=== PATIENT | female | born 1950 | race African-American/Black ===

== ENCOUNTER 2023-09-04 19:13 | Emergency (ER) | payer MEDICARE, SELFPAY ==
--- NOTE | ~2023-09-04 | XR_ITS ---
EXAMINATION: XR chest 1V portable DATE: 09/04/2023 23:17 INDICATION: Lightheadedness. Dizziness. Nausea and vomiting. TECHNIQUE: A single frontal view of the chest was obtained. COMPARISON: None. FINDINGS: There is mild atelectasis in left lower lung zone. No pleural effusion or pneumothorax. The heart size is normal. IMPRESSION: 1. Mild atelectasis in left lower lung zone. Reviewed, dictated and finalized at location E.
[2023-09-04 19:21] VITALS: BP 215/91; PULSE 71; RESP 20; TEMP 36.4; O2SAT 98
--- NOTE | 2023-09-04 19:23 | ECG_ITS ---
SEE SCANNED COPY FOR CONFIRMED REPORT MTDD
[2023-09-04 19:44] LABS: Glucose Point of Care 154 mg/dl (65-105)
[2023-09-04 19:54] LABS: Basophils Absolute Auto 0.1 K/mm3 (0.0-0.1); Basophils Percent Auto 0.7 % (0.2-1.2); Eosinophils Absolute Auto 0.4 K/mm3 (0-0.3); Eosinophils Percent Auto 4.3 % (0-4.4); Hematocrit 43.2 % (37.0-47.0); Hemoglobin 13.5 g/dL (12.0-15.0); Immature Granulocyte Absolute 0.03 K/mm3 (0.00-0.031); Immature Granulocyte Percent A 0.3 % (0-0.5); Lymphocytes Absolute Auto 2.72 K/mm3 (0.9-3.2); Lymphocytes Percent Auto 28.7 % (18.3-44.2); Mean Corpuscular HGB Conc 31.3 g/dl (32-36); Mean Corpuscular Hemoglobin 26.7 pg (26-34); Mean Corpuscular Volume 85.4 fl (80-100); Mean Platelet Volume 9.7 fl (7.4-10.4); Monocytes Absolute Auto 0.8 K/mm3 (0.1-0.6); Monocytes Percent Auto 8.4 % (2.6-8.5); Neutrophils Absolute Auto 5.4 K/mm3 (1.3-6.7); Neutrophils Percent Auto 57.6 % (45.5-73.1); Platelet Count Result 339 k/mm3 (150-375); Red Blood Count 5.06 M/mm3 (4.2-5.4); Red Cell Distribution Width 15.3 % (11.5-14.5); White Blood Count 9.5 K/mm3 (4.5-10.0)
[2023-09-04 20:10] LABS: Alanine Aminotransferase 19 U/L (6-35); Albumin Level 4.5 g/dL (3.5-5.1); Alkaline Phosphatase 96 U/L (38-126); Anion Gap 6 mmol/L (4-12); Aspartate Amino Transferase 29 U/L (14-36); Bilirubin,Total 0.4 mg/dL (0.2-1.3); Blood Urea Nitrogen 15 mg/dL (7-17); Calcium 9.2 mg/dL (8.4-10.2); Carbon Dioxide 27 mmol/L (22-30); Chloride 105 mmol/L (98-107); Estimated CRCL calculation 60 ml/min; Estimated Glomerular Filt Rate > 60; Glucose 152 mg/dL (65-110); Potassium 3.1 mmol/L (3.4-5.0); Sodium 138 mmol/L (137-145)
[2023-09-04] MEDS: POTASSIUM CHLORIDE 20 MEQ PACKET (FOR LIQUID) 40 MEQ PO (22:21)
--- NOTE | 2023-09-04 23:15 | ED.DIZZY ---
HPI - Dizziness General Chief Complaint: Dizziness <Jeanie Ridley PA-C - Last Filed: 09/05/23 02:40> Stated Complaint: lightheaded and n/v <Jeanie Ridley PA-C - Last Filed: 09/05/23 02:40> Time Seen by Provider: 09/04/23 22:55 <Jeanie Ridley PA-C - Last Filed: 09/05/23 02:40> History of Present Illness HPI Narrative: 72-year-old female with history of insulin-dependent type 2 diabetes, hypertension, hyperlipidemia presents to emergency department with her daughter at bedside for lightheadedness other today. Patient states around 6:00 p.m. she was pulling into [employer] to me her family for dinner and she began feeling lightheaded. States she got of the car and into the restaurant and suddenly became sees more severely lightheaded, woozy, and broke out in sweats. Patient's [id number] called the emergency hotline for the patient's PCP and was advised to come to the ED for further evaluation. She states shortly after the onset of symptoms she began having nausea and emesis as well. Upon my evaluation she states symptoms have completely resolved. She denies any chest pain or shortness of breath with this episode, no history of arrhythmias, no LOC. She endorses that her blood pressure has been elevated at home around 165/87 when she takes her BP daily. She does state that her PCP recently discontinued her lisinopril about 1 month ago and started her on metoprolol. She is also taking amlodipine for hypertension. Patient does endorse that she did not eat breakfast in [employer] was going to be her 1st meal, however she did continue to use her insulin throughout the day. She denies melena or hematochezia, hematemesis or coffee-ground emesis, cough or congestion, abdominal pain, dysuria or hematuria, fever. She denies sensation of vertigo. She denies personal or familial cardiac history, does state that her mother had multiple TIAs. <Jeanie Ridley PA-C - Last Filed: 09/05/23 02:40> Related Data Allergies/Adverse Reactions: Allergies Allergy/AdvReac Type Severity Reaction Status Date / Time lisinopril Allergy Swelling Verified 09/04/23 19:15 of Lip/Tongue/Throat <Jeanie Ridley PA-C - Last Filed: 09/05/23 02:40> Review of Systems Review of Systems: CONSTITUTIONAL: See HPI EYES: Denies visual changes, redness, or discharge. ENT: Denies rhinorrhea, congestion, sore throat, or otalgia. CARDIOVASCULAR: Denies chest pain, palpitations, or edema. RESPIRATORY: Denies cough or dyspnea. GASTROINTESTINAL: Denies abdominal pain, nausea, vomiting, or diarrhea. GENITOURINARY: Denies dysuria or hematuria. SKIN: Denies rash or itching. MUSCULOSKELETAL: Denies back pain, joint pain, or myalgia. NEUROLOGIC: Denies headache, numbness, or weakness. PSYCHIATRIC: Denies anxiety or depression. <Jeanie Ridley PA-C - Last Filed: 09/05/23 02:40> Exam Narrative: GENERAL: Well-appearing, well-nourished, and in no acute distress. HEAD: Normocephalic, atraumatic. EYES: PERRLA and EOMI. ENT: Nares clear, no rhinorrhea or epistaxis. Mucous membranes moist. Bilateral TMs are owens nonbulging with normal canals. NECK: Supple. CHEST: Clear to auscultation. No respiratory distress. HEART: Regular rate and rhythm. No murmur heard. Normal peripheral pulses. ABDOMEN: Soft, nontender, nondistended, normal active bowel sounds. EXTREMITIES: Normal range of motion. No edema. SKIN: Warm, dry, no rash. NEURO: No focal deficits. Alert and oriented x3 <Jeanie Ridley PA-C - Last Filed: 09/05/23 02:40> Course [employer]ORATORY ASSISTANT/PA Physician Supervision For this patient encounter, I reviewed the [employer] LABORATORY ASSISTANT or PA documentation, treatment plan, and medical decision making and had [id number] time with this patient. I performed all aspects of the MDM as documented. <Emily Goyal MD - Last Filed: 09/05/23 02:12> Vital Signs Vital signs: Vital Signs Temperature 97.5 F L 09/04/23
[2023-09-04 23:33] LABS: Magnesium 2.2 mg/dL (1.6-2.3)
[2023-09-04] MEDS: SODIUM CHLORIDE 0.9% IV 1,000 ML 999 ML IV CONT (23:36)
[2023-09-04 23:38] LABS: INR 1.1; Partial Thromboplastin Time 29.3 Seconds (22.3-36.8); Prothrombin Time 14.2 Seconds (11.1-14.7)
[2023-09-04 23:45] LABS: NT Pro B Type Natriuretic Pept 24 pg/mL (19.9-100); Troponin I < 0.012 ng/mL (0.000-0.034)
[2023-09-04 23:47] LABS: Appearance Urine Clear (Clear); Bacteria Urine None Seen /hpf; Bilirubin Urine Negative (Negative); Blood Urine Negative (Negative); Color Urine Yellow (Yellow); Glucose Urine UA 3+ mg/dL (Negative); Ketones Urine Negative (Negative); Leukocyte Esterase Ur 2+ LEU/UL (Negative); Nitrate Urine Negative (Negative); Non Pathogenic Casts 0-2; Protein Urine Negative (Negative); RBC Urine 0-2 /hpf (0-2); Specific Grav Ur 1.017 (1.001-1.035); Squamous Epithelial Cell Urine None Seen /hpf (Few); Urobilinogen Urine 0.2 mg/dL (<2.0); pH Urine 8.5 (5.0-9.0)
[2023-09-04 23:48] LABS: Add Urine Microscopic? YES
[2023-09-05 00:28] VITALS: BP 173/94; PULSE 92; RESP 16; O2SAT 96
[2023-09-05 00:38] VITALS: BP 180/82; PULSE 68; RESP 15; O2SAT 100
== END 2023-09-05 00:38 | disposition home or self-care (01) ==
PROVIDERS: Emergency Medicine; Emergency Provider Physician Assistant
DX: R42 Dizziness and giddiness (principal); I10 Essential (primary) hypertension; E78.5 Hyperlipidemia, unspecified; R82.998 Other abnormal findings in urine; E11.9 Type 2 diabetes mellitus without complications; I44.0 Atrioventricular block, first degree
CPT/HCPCS: 36415; 71045; 80053; 81001; 82948; 83735; 83880; 84484; 85025; 85610; 85730; 87086; 87088; 93005; 96360; 99284; A9270; J7030